=== PATIENT | male | born 1965 ===

== ENCOUNTER 2024-11-04 11:54 | Day surgery (SDC) | payer OTHER ==
[~2024-11-04] VITALS: Ht 180.3 cm; Wt 101.5 kg
[2024-11-04] MEDS ORDERED: DOCU100 (11:59)
[2024-11-04] MEDS ORDERED: ALPHA LIPOIC A (11:59)
[2024-11-04] MEDS ORDERED: BENADRYL25 MG (11:59)
[2024-11-04] MEDS ORDERED: ESCI20 (11:59)
[2024-11-04] MEDS ORDERED: METF500 (12:00)
[2024-11-04] MEDS ORDERED: LATA.005SO (12:00)
[2024-11-04] MEDS ORDERED: Flonase 0.05% N16 GM (12:00)
[2024-11-04] MEDS ORDERED: FERSU300 (12:00)
[2024-11-04] MEDS ORDERED: Vitamin B-150 MG (12:01)
[2024-11-04] MEDS ORDERED: ZOCOR20 MG (12:01)
[2024-11-04] MEDS ORDERED: PIOG30 (12:01)
[2024-11-04] MEDS ORDERED: MONT10T (12:01)
[2024-11-04] MEDS ORDERED: TRIDERM28.4 GM (12:02)
[2024-11-04] MEDS ORDERED: TRAZ100 (12:02)
[2024-11-04] MEDS ORDERED: Lactated Ringer's 1,000 ML IV ONE ×2 (12:23→12:53)
[2024-11-04] MEDS ORDERED: propofoL 50 ML IV ONE (12:53)
[2024-11-04 15:04] VITALS: BP 131/81
== END 2024-11-04 14:10 | disposition home or self-care (01) ==
LOC: ORSCSDS 11:54
PROVIDERS: Internal Medicine Gastroenterology
PROC: 0DB98ZX Excision of Duodenum, Via Natural or Artificial Opening Endoscopic, Diagnostic (ICD-10-PCS; principal; 2024-11-04 13:00)
PROC: 0DBP8ZX Excision of Rectum, Via Natural or Artificial Opening Endoscopic, Diagnostic (ICD-10-PCS; principal; 2024-11-04 13:00)
PROC: 0DBK8ZX Excision of Ascending Colon, Via Natural or Artificial Opening Endoscopic, Diagnostic (ICD-10-PCS; principal; 2024-11-04 13:00)
PROC: 0DB68ZX Excision of Stomach, Via Natural or Artificial Opening Endoscopic, Diagnostic (ICD-10-PCS; principal; 2024-11-04 13:00)
DX: D50.9 Iron deficiency anemia, unspecified (principal); K29.50 Unspecified chronic gastritis without bleeding; B96.81 Helicobacter pylori [H. pylori] as the cause of diseases classified elsewhere; R11.0 Nausea; K31.A0 Gastric intestinal metaplasia, unspecified; K29.80 Duodenitis without bleeding; D12.2 Benign neoplasm of ascending colon; K62.1 Rectal polyp; K57.30 Diverticulosis of large intestine without perforation or abscess without bleeding; E11.9 Type 2 diabetes mellitus without complications; I10 Essential (primary) hypertension; Z79.84 Long term (current) use of oral hypoglycemic drugs; Z79.899 Other long term (current) drug therapy; Z87.891 Personal history of nicotine dependence
CPT/HCPCS: 82947; 88305; 88342; J2704; J7120

== ENCOUNTER → 2024-11-25 | Outpatient (CLI) | payer OTHER ==
[~2024-11-25] MED LIST: ALPHA LIPOIC A; BENADRYL25 MG; DOCU100; ESCI20; FERSU300; Flonase 0.05% N16 GM; LATA.005SO; METF500; MONT10T; PIOG30; TRAZ100; TRIDERM28.4 GM; Vitamin B-150 MG; ZOCOR20 MG
[2024-11-25 17:00] LABS: BASOPHILS ABSOLUTE AUTO 0.06 K/mm3 (0.00-0.23); BASOPHILS PERCENT AUTO 1 % (0-2); EOSINOPHILS ABSOLUTE AUTO 0.03 K/mm3 (0.00-0.68); EOSINOPHILS PERCENT AUTO 0 % (0-6); Hematocrit 39.3 % (37.0-53.0); Hemoglobin 12.8 g/dL (13.5-17.5); IMMATURE GRAN ABSOLUTE AUTO 0.02 K/mm3 (0.00-0.10); IMMATURE GRAN PERCENT AUTO 0 % (0-1); LYMPHOCYTES ABSOLUTE AUTO 1.89 K/mm3 (0.84-5.20); LYMPHOCYTES PERCENT AUTO 26 % (21-46); MONOCYTES ABSOLUTE AUTO 0.87 K/mm3 (0.16-1.47); MONOCYTES PERCENT AUTO 12 % (4-13); Mean Corpuscular HGB 29.6 pg (26.0-34.0); Mean Corpuscular HGB Conc 32.6 g/dL (31.5-36.5); Mean Corpuscular Volume 91 fL (80-100); Mean Platelet Volume 9.5 fL (9.1-12.4); NEUTROPHILS ABSOLUTE AUTO 4.29 K/mm3 (1.96-9.15); NEUTROPHILS PERCENT AUTO 60 % (41-73); Platelet Count 284 K/mm3 (150-400); RDW Coefficient Variation 13.2 % (11.7-14.2); RDW Standard Deviation 43.7 fL (35.1-46.3); Red Blood Cell Count 4.33 M/mm3 (4.30-5.90); White Blood Cell Count 7.16 K/mm3 (4.00-11.30)
[2024-11-25 17:09] LABS: Albumin, Blood 3.6 g/dL (3.4-5.0); Albumin/Globulin Ratio 1.2 (0.8-1.8); Bilirubin, Total 0.3 mg/dL (0.1-1.0); Bun/Creatinine Ratio 9.1 (12.0-20.0); Calcium, Blood 8.6 mg/dL (8.5-10.1); Creatinine, Blood 1.32 mg/dL (0.60-1.20); Globulin, Blood 3.1 g/dL (2.2-4.0); Potassium, Blood 3.9 mmol/L (3.5-5.5); Total Protein, Blood 6.7 g/dL (6.4-8.2)
== END ==
LOC: LAB SHORT 16:53 → LAB 16:53
PROVIDERS: Physician Assistant
DX: R10.9 Unspecified abdominal pain (principal)
CPT/HCPCS: 80053; 83690; 85025

== ENCOUNTER → 2024-12-21 | Outpatient (CLI) | payer OTHER | LOC: LAB SHORT 12:54 → LAB 12:54 | DX: A04.8 Other specified bacterial intestinal infections (principal) | CPT/HCPCS: 87338 ==